=== PATIENT | male | born 1950 | race Caucasian/White ===

== ENCOUNTER 2018-10-29 14:27 | Observation (INO) | payer MEDICARE, OTHER ==
[2018-10-29] MEDS ORDERED: Sodium Chloride 0.9% 2.5 ML Syringe FLUSH PRN (14:40)
[2018-10-29] MEDS ORDERED: Sodium Chloride 0.9% 10 ML Syringe FLUSH PRN (14:40)
--- NOTE | 2018-10-29 14:42 | EDM.PDOC ---
ED HPI GENERAL MEDICAL PROBLEM - General Chief Complaint: Cardiovascular Problem Stated Complaint: HIGH BLOOD PRESSURE Time Seen by Provider: 10/29/18 14:33 Source of Information: Reports: Patient History Limitations: Reports: No Limitations - History of Present Illness INITIAL COMMENTS - FREE TEXT/NARRATIVE: History of present illness: []Patient arrives complaining of lightheadedness, headache and substernal nonradiating constant chest pain for 2 days. He has been taking hydrochlorothiazide for one week was started when he went into the clinic for cold symptoms and found to have high blood pressure. Review of systems: As per history of present illness and below otherwise all systems reviewed and negative. Past medical history: As per history of present illness and as reviewed below otherwise noncontributory. Surgical history: As per history of present illness and as reviewed below otherwise noncontributory. Social history: No reported history of drug or alcohol abuse. Family history: As per history of present illness and as reviewed below otherwise noncontributory. Physical exam: General: Well developed, well nourished in NAD HEENT: Atraumatic, normocephalic, pupils reactive, negative for conjunctival pallor or scleral icterus, mucous membranes moist, throat clear, neck supple, nontender, trachea midline. Lungs: Clear to auscultation, breath sounds equal bilaterally, chest nontender. Heart: S1S2, regular, negative for clicks, rubs, or JVD. Abdomen: NABS, Soft, nondistended, nontender. Negative for masses or hepatosplenomegaly. Negative for costovertebral tenderness. Pelvis: Stable nontender. Genitourinary: Deferred. Rectal: Deferred. Extremities: Atraumatic, negative for cords or calf pain. Neurovascular unremarkable. Neuro: Awake, alert, oriented. Cranial nerves II through XII unremarkable. Cerebellum unremarkable. Motor and sensory unremarkable throughout. Exam nonfocal. Skin:warm and dry Diagnostics: CBC, chemistry, troponin, chest x-ray EKG Therapeutics: IV fluids ED Course: Stable Impression: Hyponatremia Prescriptions: Plan: Admit to Dr. Tuttle hospitalist service for sodium correction Definitive disposition and diagnosis as appropriate pending reevaluation and review of above. Headache Pain Score (Numeric/FACES): 6 - Related Data Allergies Allergy/AdvReac Type Severity Reaction Status Date / Time No Known Allergies Allergy Verified 10/29/18 14:40 Home Meds: Home Meds hydroCHLOROthiazide [Hydrochlorothiazide] 12.5 mg PO DAILY 10/29/18 [History] ED ROS GENERAL - Review of Systems Review Of Systems: ROS reveals no pertinent complaints other than HPI. ED EXAM, GENERAL - Physical Exam Exam: See Below (See history of present illness) Course - Vital Signs Last Recorded V/S: Last Vital Signs Temp 97.1 F 10/29/18 14:40 Pulse 95 10/29/18 15:03 Resp 18 10/29/18 15:03 BP 185/97 H 10/29/18 15:03 Pulse Ox 98 10/29/18 15:03 - Orders/Labs/Meds Orders: Active Orders 24 hr Category Date Time Status Patient Status [ADT] Stat ADT 10/29/18 15:35 Ordered EKG Documentation Completion [RC] STAT Care 10/29/18 14:40 Active Chest 1V Frontal [CR] Stat Exams 10/29/18 14:41 Ordered Head wo Cont [CT] Stat Exams 10/29/18 14:59 Taken Sodium Chloride 0.9% [Normal Saline] 1,000 ml Med 10/29/18 15:36 Ordered IV .Bolus Sodium Chloride 0.9% [Saline Flush] Med 10/29/18 14:40 Active 10 ml FLUSH ASDIRECTED PRN Sodium Chloride 0.9% [Saline Flush] Med 10/29/18 14:40 Active 2.5 ml FLUSH ASDIRECTED PRN Saline Lock Insert [OM.PC] Stat Oth 10/29/18 14:40 Ordered Medication Orders Sodium Chloride (Normal Saline) 1,000 mls @ 250 mls/hr IV .Bolus ONE Stop: 10/29/18 19:35 Sodium Chloride (Saline Flush) 10 ml FLUSH ASDIRECTED PRN PRN Reason: Keep Vein Open Last Admin: 10/29/18 15:00 Dose: 10 ml Sodium Chloride (Saline Flush) 2.5 ml FLUSH ASDIRECTED PRN PRN Reason: Keep Vein Open Last Admin: 10/29/18 15:01 Dose: 2.5 ml Labs: Laboratory Tests 10/29/18 10/29/18 Range/Units 14:55 14:55 WBC 9.82 (4.0-11.0) K/uL RBC 4.86 (4.50-5.90) M/uL Hgb 15.2 (13.0-17.0) g/dL Hct 43.4 (38.0-50.0) % MCV 89.3 (80.0-98.0) fL MCH 31.3 (27.0-32.0) pg MCHC 35.0 (31.0-37.0) g/dL RDW Std Deviation 39.4 (28.0-62.0) fl RDW Coeff of Gregory 12 (11.0-15.0) % Plt Count 266 (150-400) K/uL MPV 8.80 (7.40-12.00) fL Neut % (Auto) 72.2 (48.0-80.0) % Lymph % (Auto) 20.1 (16.0-40.0) % [place] % (Auto) 7.3 (0.0-15.0) % Eos % (Auto) 0.0 (0.0-7.0) % Baso % (Auto) 0.4 (0.0-1.5) % Neut # (Auto) 7.1 H (1.4-5.7) K/uL Lymph # (Auto) 2.0 (0.6-2.4) K/uL [place] # (Auto) 0.7 (0.0-0.8) K/uL Eos # (Auto) 0.0 (0.0-0.7) K/uL Baso # (Auto) 0.0 (0.0-0.1) K/uL Nucleated RBC % 0.0 /100WBC Nucleated RBCs # 0 K/uL Sodium 124 L (136-148) mmol/L Potassium 4.0 (3.5-5.1) mmol/L Chloride 87 L (98-107) mmol/L Carbon Dioxide 26.6 (21.0-32.0) mmol/L BUN 6 L (7.0-18.0) mg/dL Creatinine 0.9 (0.8-1.3) mg/dL Est Cr Clr Drug Dosing 73.44 mL/min Estimated GFR (MDRD) > 60.0 ml/min Glucose 97 (74-106) mg/dL Calcium 8.9 (8.5-10.1) mg/dL Total Bilirubin 0.8 (0.2-1.0) mg/dL AST 24 (15-37) IU/L ALT 17 (14-63) IU/L Alkaline Phosphatase 125 H (46-116) U/L Troponin I < 0.050 (0.000-0.056) ng/mL Total Protein 8.0 (6.4-8.2) g/dL Albumin 3.8 (3.4-5.0) g/dL Globulin 4.2 H (2.6-4.0) g/dL Albumin/Globulin Ratio 0.9 (0.9-1.6) TSH 3rd Generation 3.24 (0.36-3.74) uIU/mL Meds: Medications Generic Name Dose Route Start Last Admin Trade Name Freq PRN Reason Stop Dose Admin Sodium Chloride 1,000 mls @ 250 mls/hr 10/29/18 15:36 Normal Saline IV 10/29/18 19:35 .Bolus ONE Sodium Chloride 10 ml 10/29/18 14:40 10/29/18 15:00 Saline Flush FLUSH 10 ml ASDIRECTED PRN Administration Keep Vein Open Sodium Chloride 2.5 ml 10/29/18 14:40 10/29/18 15:01 Saline Flush FLUSH 2.5 ml ASDIRECTED PRN Administration Keep Vein Open Departure - Departure Time of Disposition: 15:38 Disposition: Refer to Observation Condition: Good Clinical Impression: Hyponatremia Chest pain Qualifiers: Chest pain type: unspecified Qualified Code(s): R07.9 - Chest pain, unspecified Referrals: PCP,None [Primary Care Provider] - Forms: ED Department Discharge - My Orders Last 24 Hours: My Active Orders 10/29/18 14:40 EKG Documentation Completion [RC] STAT Sodium Chloride 0.9% [Saline Flush] 10 ml FLUSH ASDIRECTED PRN Sodium Chloride 0.9% [Saline Flush] 2.5 ml FLUSH ASDIRECTED PRN Saline Lock Insert [OM.PC] Stat 10/29/18 14:41 Chest 1V Frontal [CR] Stat 10/29/18 14:59 Head wo Cont [CT] Stat 10/29/18 15:35 Patient Status [ADT] Stat 10/29/18 15:36 Sodium Chloride 0.9% [Normal Saline] 1,000 ml IV .Bolus - Assessment/Plan Last 24 Hours: My Active Orders 10/29/18 14:40 EKG Documentation Completion [RC] STAT Sodium Chloride 0.9% [Saline Flush] 10 ml FLUSH ASDIRECTED PRN Sodium Chloride 0.9% [Saline Flush] 2.5 ml FLUSH ASDIRECTED PRN Saline Lock Insert [OM.PC] Stat 10/29/18 14:41 Chest 1V Frontal [CR] Stat 10/29/18 14:59 Head wo Cont [CT] Stat 10/29/18 15:35 Patient Status [ADT] Stat 10/29/18 15:36 Sodium Chloride 0.9% [Normal Saline] 1,000 ml IV .Bolus
[2018-10-29 15:26] LABS: CHLORIDE,CL 87 mmol/L (98-107); SODIUM,NA 124 mmol/L (136-148)
[2018-10-29] MEDS ORDERED: Sodium Chloride 0.9% 1,000 ML IV ONE (15:36)
--- NOTE | 2018-10-29 16:15 | CR ---
INDICATION: Pain shortness of breath TECHNIQUE: Single view chest. FINDINGS: The lungs are clear. The heart, mediastinum and pulmonary vessels are of normal size. There is no evidence of pleural disease. IMPRESSION: Negative chest. Dictated by Tatyana Madden MD @ Oct 29 2018 4:13PM Signed by Dr. Tatyana Madden @ Oct 29 2018 4:14PM
[2018-10-29] MEDS ORDERED: LORazepam 2 MG/ML SDV IVPUSH PRN (16:26)
--- NOTE | 2018-10-29 16:27 | CT ---
INDICATION: PAIN. PT STATES HEADACHE, HIGH BLOOD PRESSURE, LIGHTHEADED. PT STATES STARTED ON HIGH BLOOD PRESSURE PILLS ON WEDNESDAY TECHNIQUE: CT Head without i.v. contrast. COMPARISON: None FINDINGS: CSF spaces: Within normal limits for age. Brain parenchyma: Mild diffuse cortical atrophy is noted. There are low attenuation white matter changes, likely due to chronic microvascular disease. The brain parenchyma is normal in appearance with preservation of the duron-white matter junction. No sign of mass, hemorrhage, or midline shift seen. Skull base and calvarium: Moderate degree of right frontal, right maxillary, and anterior ethmoid mucosal thickening. The mastoid air cells are clear. The visualized orbits are grossly unremarkable. No skull fractures are seen. Moderate calcified plaque involving the bilateral intracranial internal carotid arteries. IMPRESSION: 1. No evidence of acute infarction, intracranial hemorrhage, or mass effect seen. 2. Moderate degree of chronic right frontal, right maxillary, and ethmoid sinus disease. Dictated by Curly Lopez MD @ 10/29/2018 4:26:04 PM Please note that all CT scans at this facility use dose modulation, iterative reconstruction, and/or weight-based dosing when appropriate to reduce radiation dose to as low as reasonably achievable. Dictated by: Curly Lopez MD @ 10/29/2018 16:26:07 (Electronically Signed)
[2018-10-29] MEDS ORDERED: Sodium Chloride 0.9% 1,000 ML IV SCH (16:30)
[2018-10-29] MEDS ORDERED: Acetaminophen 325 MG Tab PO PRN (16:56)
[2018-10-29] MEDS ORDERED: cloNIDine 0.1 MG Tab PO ONE (17:12)
--- NOTE | 2018-10-29 18:13 | PCM.HP ---
H&P History of Present Illness - General Date of Service: 10/29/18 Admit Problem/Dx: Admission Diagnosis/Problem Admission Diagnosis/Problem Hyponatremia - History of Present Illness Initial Comments - Free Text/Narative: 68 yo male who presents to the ED with complaints of elevated blood pressure. Patient was seen in clinic this week for sore throat cough and headache. He was given HCTZ for treatment of blood pressure. He reports headache has persisted but cough has improved. His blood pressure this week has been in the 180s to 190s systolic but he states it is normal 140s-150s systolic. He reports taking cold medicine but does not know if it contained pseudophed. Headache Pain Score (Numeric/FACES): 3 - Related Data Allergies/Adverse Reactions: Allergies Allergy/AdvReac Type Severity Reaction Status Date / Time No Known Allergies Allergy Verified 10/29/18 14:40 Home Medications: Home Meds Lisinopril 20 mg PO DAILY #30 tablet 10/30/18 [Rx] Past Medical History - Past Health History Medical/Surgical History: Denies Medical/Surgical History Respiratory History: Reports: Other (See Below) Other Respiratory History: Pt reports having pneumonia two years ago - Infectious Disease History Infectious Disease History: Reports: Chicken Pox Social & Family History - Family History Family Medical History: Noncontributory Cardiac: Reports: Other (See Below) Other Cardiac Family History: Pt reports dad and uncles having "heart troubles" - Tobacco Use Smoking Status *Q: Current Every Day Smoker Years of Tobacco use: 50 Packs/Tins Daily: 1.5 Used Tobacco, but Quit: No Second Hand Smoke Exposure: No - Caffeine Use Caffeine Use: Reports: Coffee Caffeine Use Comment: About 8 cups a day - Alcohol Use Days Per Week of Alcohol Use: 7 Number of Drinks Per Day: 5 Total Drinks Per Week: 35 Date of Last Drink: 10/28/18 Time of Last Drink: 20:00 - Recreational Drug Use Recreational Drug Use: No H&P Review of Systems - Review of Systems: Review Of Systems: ROS reveals no pertinent complaints other than HPI. Exam - Exam Exam: See Below - Vital Signs Vital Signs: Last Vital Signs Temp 36.6 C 10/29/18 16:04 Pulse 98 10/29/18 16:04 Resp 16 10/29/18 16:04 BP 162/110 H 10/29/18 17:31 Pulse Ox 98 10/29/18 16:04 Weight: 70.08 kg - Exam General: Alert, Oriented HEENT: Mucosa Moist & [place] Lungs: Clear to Auscultation, Normal Respiratory Effort Cardiovascular: Regular Rate, Regular Rhythm GI/Abdominal Exam: Normal Bowel Sounds, Soft, Non-Tender Extremities: Normal Inspection, Non-Tender, No Pedal Edema Skin: Warm, Dry, Intact Neurological: Cranial Nerves Intact. No: Focal Deficit - Patient Data Lab Results Last 24 hrs: Laboratory Results - last 24 hr 10/29/18 10/29/18 Range/Units 14:55 14:55 WBC 9.82 (4.0-11.0) K/uL RBC 4.86 (4.50-5.90) M/uL Hgb 15.2 (13.0-17.0) g/dL Hct 43.4 (38.0-50.0) % MCV 89.3 (80.0-98.0) fL MCH 31.3 (27.0-32.0) pg MCHC 35.0 (31.0-37.0) g/dL RDW Std Deviation 39.4 (28.0-62.0) fl RDW Coeff of Gregory 12 (11.0-15.0) % Plt Count 266 (150-400) K/uL MPV 8.80 (7.40-12.00) fL Neut % (Auto) 72.2 (48.0-80.0) % Lymph % (Auto) 20.1 (16.0-40.0) % [place] % (Auto) 7.3 (0.0-15.0) % Eos % (Auto) 0.0 (0.0-7.0) % Baso % (Auto) 0.4 (0.0-1.5) % Neut # (Auto) 7.1 H (1.4-5.7) K/uL Lymph # (Auto) 2.0 (0.6-2.4) K/uL [place] # (Auto) 0.7 (0.0-0.8) K/uL Eos # (Auto) 0.0 (0.0-0.7) K/uL Baso # (Auto) 0.0 (0.0-0.1) K/uL Nucleated RBC % 0.0 /100WBC Nucleated RBCs # 0 K/uL Sodium 124 L (136-148) mmol/L Potassium 4.0 (3.5-5.1) mmol/L Chloride 87 L (98-107) mmol/L Carbon Dioxide 26.6 (21.0-32.0) mmol/L BUN 6 L (7.0-18.0) mg/dL Creatinine 0.9 (0.8-1.3) mg/dL Est Cr Clr Drug Dosing 73.44 mL/min Estimated GFR (MDRD) > 60.0 ml/min Glucose 97 (74-106) mg/dL Calcium 8.9 (8.5-10.1) mg/dL Total Bilirubin 0.8 (0.2-1.0) mg/dL AST 24 (15-37) IU/L ALT 17 (14-63) IU/L Alkaline Phosphatase 125 H (46-116) U/L Troponin I < 0.050 (0.000-0.056) ng/mL Total Protein 8.0 (6.4-8.2) g/dL Albumin 3.8 (3.4-5.0) g/dL Globulin 4.2 H (2.6-4.0) g/dL Albumin/Globulin Ratio 0.9 (0.9-1.6) TSH 3rd Generation 3.24 (0.36-3.74) uIU/mL Result Diagrams: 10/30/18 03:11 10/30/18 03:11 Problem List Initiated/Reviewed/Updated: Yes Orders Last 24hrs: Active Orders 24 hr Category Date Time Status Patient Status [ADT] Stat ADT 10/29/18 15:35 Active Antiembolic Devices [RC] PER UNIT ROUTINE Care 10/29/18 18:01 Ordered CIWAA Assessment [RC] Q4H Care 10/29/18 16:25 Active EKG Documentation Completion [RC] STAT Care 10/29/18 14:40 Active Oxygen Therapy [RC] PRN Care 10/29/18 18:01 Ordered Telemetry Monitoring [Cardiac Monitoring] [RC] Q4H Care 10/29/18 16:23 Active Up ad Hazel [RC] ASDIRECTED Care 10/29/18 18:01 Ordered VTE/DVT Education [RC] PER UNIT ROUTINE Care 10/29/18 18:01 Ordered Vital Signs [RC] Q4H Care 10/29/18 18:01 Ordered Regular Diet [DIET] Diet 10/29/18 Dinner Active BMP [BASIC METABOLIC PANEL,BMP] [CHEM] Routine Lab 10/30/18 05:11 Ordered CBC WITH AUTO DIFF [HEME] Routine Lab 10/30/18 05:11 Ordered Acetaminophen [Tylenol] Med 10/29/18 16:56 Active 650 mg PO Q6H PRN LORazepam [Ativan] Med 10/29/18 16:26 Active See Protocol IVPUSH Q4H PRN Sodium Chloride 0.9% [Normal Saline] 1,000 ml Med 10/29/18 15:36 Active IV .Bolus Sodium Chloride 0.9% [Normal Saline] 1,000 ml Med 10/29/18 16:30 Active IV ASDIRECTED Sodium Chloride 0.9% [Saline Flush] Med 10/29/18 14:40 Active 10 ml FLUSH ASDIRECTED PRN Sodium Chloride 0.9% [Saline Flush] Med 10/29/18 14:40 Active 2.5 ml FLUSH ASDIRECTED PRN Saline Lock Insert [OM.PC] Stat Oth 10/29/18 14:40 Ordered Sequential Compression Device [OM.PC] Per Unit Routine Oth 10/29/18 18:01 Ordered Resuscitation Status Routine Resus Stat 10/29/18 18:01 Ordered Medication Orders Acetaminophen (Tylenol) 650 mg PO Q6H PRN PRN Reason: Pain Sodium Chloride (Normal Saline) 1,000 mls @ 250 mls/hr IV .Bolus ONE Stop: 10/29/18 19:35 Last Admin: 10/29/18 15:44 Dose: 250 mls/hr Sodium Chloride (Normal Saline) 1,000 mls @ 125 mls/hr IV ASDIRECTED DONNY Lorazepam (Ativan) 0 mg IVPUSH Q4H PRN; Protocol PRN Reason: Withdrawal Symptoms Sodium Chloride (Saline Flush) 10 ml FLUSH ASDIRECTED PRN PRN Reason: Keep Vein Open Last Admin: 10/29/18 15:00 Dose: 10 ml Sodium Chloride (Saline Flush) 2.5 ml FLUSH ASDIRECTED PRN PRN Reason: Keep Vein Open Last Admin: 10/29/18 15:01 Dose: 2.5 ml Assessment/Plan Comment:: 68 yo male admitted with hyponatremia and hypertension. Hyponatremia likley for HCTZ so this was discontinued. We will start oral antihypertensives and hydrate with IV fluids. Will recheck BMP to ensure sodium is correcting. Family will bring in cold medicine for review.
[2018-10-30 03:32] LABS: CHLORIDE,CL 94 mmol/L (98-107); SODIUM,NA 131 mmol/L (136-148)
--- NOTE | 2018-10-30 09:23 | PCM.DCSUM1 ---
Discharge Summary - Discharge Data Discharge Date: 10/30/18 Discharge Disposition: Home, Self-Care 01 Condition: Fair - Patient Summary/Data Hospital Course: 68 yo male who was admitted for hyponatremia and hypertension. He presented to the ED with complaints of elevated blood pressure and headache. Patient was seen in clinic four days earlier for sore throat cough and headache. He was given HCTZ for treatment of blood pressure. He reports headache has persisted but cough has improved. His blood pressure this week has been in the 180s to 190s systolic but he states it is normal 140s-150s systolic. He took cold medicine but it did not contain pseudophed. He was noted to have a sodium of 124. He was admitted and given one liter of normal saline and one dose of clonidine. His headache resolved and his sodium improved to 131. His blood pressure did drop to 106/75 after clonidine but today it has normalized to the 140s systolic. Today he is requesting discharge. He was discharged home to have follow up with [facility]. He was given a prescription of lisinopril 20mg daily and instructed to take his blood pressure daily. - Patient Instructions Diet: Usual Diet as Tolerated Activity: As Tolerated - Discharge Plan Prescriptions/Med Rec: Lisinopril 20 mg PO DAILY #30 tablet Home Medications: Home Meds Lisinopril 20 mg PO DAILY #30 tablet 10/30/18 [Rx] Forms: ED Department Discharge Referrals: PCP,None [Primary Care Provider] - - Discharge Summary/Plan Comment DC Time >30 min.: No - Patient Data Vitals - Most Recent: Last Vital Signs Temp 36.4 C 10/30/18 07:37 Pulse 69 10/30/18 07:37 Resp 16 10/30/18 07:37 BP 140/82 10/30/18 07:37 Pulse Ox 97 10/30/18 07:37 Weight - Most Recent: 70.08 kg I&O - Last 24 hours: Intake & Output 10/29/18 10/30/18 10/30/18 22:59 06:59 14:59 Intake Total 1000 860 240 Output Total 1750 Balance 1000 -890 240 Lab Results - Last 24 hrs: Laboratory Results - last 24 hr 10/29/18 10/29/18 10/29/18 Range/Units 14:55 14:55 20:45 WBC 9.82 (4.0-11.0) K/uL RBC 4.86 (4.50-5.90) M/uL Hgb 15.2 (13.0-17.0) g/dL Hct 43.4 (38.0-50.0) % MCV 89.3 (80.0-98.0) fL MCH 31.3 (27.0-32.0) pg MCHC 35.0 (31.0-37.0) g/dL RDW Std Deviation 39.4 (28.0-62.0) fl RDW Coeff of [place] 12 (11.0-15.0) % Plt Count 266 (150-400) K/uL MPV 8.80 (7.40-12.00) fL Neut % (Auto) 72.2 (48.0-80.0) % Lymph % (Auto) 20.1 (16.0-40.0) % [place] % (Auto) 7.3 (0.0-15.0) % Eos % (Auto) 0.0 (0.0-7.0) % Baso % (Auto) 0.4 (0.0-1.5) % Neut # (Auto) 7.1 H (1.4-5.7) K/uL Lymph # (Auto) 2.0 (0.6-2.4) K/uL [place] # (Auto) 0.7 (0.0-0.8) K/uL Eos # (Auto) 0.0 (0.0-0.7) K/uL Baso # (Auto) 0.0 (0.0-0.1) K/uL Nucleated RBC % 0.0 /100WBC Nucleated RBCs # 0 K/uL Sodium 124 L (136-148) mmol/L Potassium 4.0 (3.5-5.1) mmol/L Chloride 87 L (98-107) mmol/L Carbon Dioxide 26.6 (21.0-32.0) mmol/L BUN 6 L (7.0-18.0) mg/dL Creatinine 0.9 (0.8-1.3) mg/dL Est Cr Clr Drug Dosing 73.44 mL/min Estimated GFR (MDRD) > 60.0 ml/min Glucose 97 (74-106) mg/dL Calcium 8.9 (8.5-10.1) mg/dL Total Bilirubin 0.8 (0.2-1.0) mg/dL AST 24 (15-37) IU/L ALT 17 (14-63) IU/L Alkaline Phosphatase 125 H (46-116) U/L Troponin I < 0.050 < 0.050 (0.000-0.056) ng/mL Total Protein 8.0 (6.4-8.2) g/dL Albumin 3.8 (3.4-5.0) g/dL Globulin 4.2 H (2.6-4.0) g/dL Albumin/Globulin Ratio 0.9 (0.9-1.6) TSH 3rd Generation 3.24 (0.36-3.74) uIU/mL 10/30/18 10/30/18 10/30/18 Range/Units 03:11 03:11 03:11 WBC 6.10 (4.0-11.0) K/uL RBC 4.65 (4.50-5.90) M/uL Hgb 14.6 (13.0-17.0) g/dL Hct 42.0 (38.0-50.0) % MCV 90.3 (80.0-98.0) fL MCH 31.4 (27.0-32.0) pg MCHC 34.8 (31.0-37.0) g/dL RDW Std Deviation 40.7 (28.0-62.0) fl RDW Coeff of [place] 12 (11.0-15.0) % Plt Count 243 (150-400) K/uL MPV 8.90 (7.40-12.00) fL Neut % (Auto) 67.8 (48.0-80.0) % Lymph % (Auto) 18.5 (16.0-40.0) % [place] % (Auto) 13.0 (0.0-15.0) % Eos % (Auto) 0.0 (0.0-7.0) % Baso % (Auto) 0.7 (0.0-1.5) % Neut # (Auto) 4.1 (1.4-5.7) K/uL Lymph # (Auto) 1.1 (0.6-2.4) K/uL [place] # (Auto) 0.8 (0.0-0.8) K/uL Eos # (Auto) 0.0 (0.0-0.7) K/uL Baso # (Auto) 0.0 (0.0-0.1) K/uL Nucleated RBC % 0.0 /100WBC Nucleated RBCs # 0 K/uL Sodium 131 L (136-148) mmol/L Potassium 4.3 (3.5-5.1) mmol/L Chloride 94 L (98-107) mmol/L Carbon Dioxide 29.4 (21.0-32.0) mmol/L BUN 10 (7.0-18.0) mg/dL Creatinine 0.9 (0.8-1.3) mg/dL Est Cr Clr Drug Dosing 70.89 mL/min Estimated GFR (MDRD) > 60.0 ml/min Glucose 96 (74-106) mg/dL Calcium 8.6 (8.5-10.1) mg/dL Total Bilirubin (0.2-1.0) mg/dL AST (15-37) IU/L ALT (14-63) IU/L Alkaline Phosphatase (46-116) U/L Troponin I < 0.050 (0.000-0.056) ng/mL Total Protein (6.4-8.2) g/dL Albumin (3.4-5.0) g/dL Globulin (2.6-4.0) g/dL Albumin/Globulin Ratio (0.9-1.6) TSH 3rd Generation (0.36-3.74) uIU/mL Med Orders - Current: Current Medications Acetaminophen (Tylenol) 650 mg PO Q6H PRN PRN Reason: Pain Lorazepam (Ativan) 0 mg IVPUSH Q4H PRN; Protocol PRN Reason: Withdrawal Symptoms Sodium Chloride (Saline Flush) 10 ml FLUSH ASDIRECTED PRN PRN Reason: Keep Vein Open Last Admin: 10/29/18 15:00 Dose: 10 ml Sodium Chloride (Saline Flush) 2.5 ml FLUSH ASDIRECTED PRN PRN Reason: Keep Vein Open Last Admin: 10/29/18 15:01 Dose: 2.5 ml Discontinued Medications Clonidine HCl (Catapres) 0.1 mg PO ONETIME ONE Stop: 10/29/18 17:13 Last Admin: 05/11/19 17:31 Dose: 0.1 mg Sodium Chloride (Normal Saline) 1,000 mls @ 250 mls/hr IV .Bolus ONE Stop: 10/29/18 19:35 Last Admin: 10/29/18 15:44 Dose: 250 mls/hr Sodium Chloride (Normal Saline) 1,000 mls @ 125 mls/hr IV ASDIRECTED DONNY
== END 2018-10-30 10:45 | disposition home or self-care (01) ==
LOC: MW.ED 14:27 → MW.MS 15:45
PROVIDERS: ADMIT Internal Medicine; ATTEND Internal Medicine
DX: I10 Essential (primary) hypertension (principal); E87.1 Hypo-osmolality and hyponatremia; F17.210 Nicotine dependence, cigarettes, uncomplicated
CPT/HCPCS: 36415; 70450; 71045; 80048; 80053; 84443; 84484; 85025; 93005; 96360; 96361; 99285; A9270; G0378; J7040

== ENCOUNTER 2019-02-07 13:35 | Emergency (ER) | payer MEDICARE ==
--- NOTE | 2019-02-07 13:50 | EDM.PDOC ---
ED HPI GENERAL MEDICAL PROBLEM - General Chief Complaint: Upper Extremity Injury/Pain Stated Complaint: LEFT SHOULDER Time Seen by Provider: 02/07/19 13:40 Source of Information: Reports: Patient History Limitations: Reports: No Limitations - History of Present Illness INITIAL COMMENTS - FREE TEXT/NARRATIVE: HISTORY AND PHYSICAL: History of present illness: Patient is a 68 her old male who presents to the emergency room with complaints of pain to his left shoulder. 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 He denies falling or hitting his head. He does not take any blood thinners. Pain is localized to a golf ball sized area that has soft tissue swelling at the left medial anterior deltoid. Patient denies any fever, chills, headache, change in vision, syncope or near syncope. Denies any chest pain, back pain, shortness of breath or cough. Denies any GI or symptoms. Patient has been eating and drinking appropriately. Review of systems: As per history of present illness and below otherwise all systems reviewed and negative. Past medical history: As per history of present illness and as reviewed below otherwise noncontributory. Surgical history: As per history of present illness and as reviewed below otherwise noncontributory. Social history: See social history for further information Family history: As per history of present illness and as reviewed below otherwise noncontributory. Physical exam: General: Well-developed and well-nourished 68-year-old male. Alert and oriented. Nontoxic appearing and in no acute distress HEENT: Atraumatic, normocephalic, pupils equal and reactive bilaterally, negative for conjunctival pallor or scleral icterus, mucous membranes moist, trachea midline. No drooling or trismus noted. No meningeal signs. No hot potato voice noted. Lungs: Clear to auscultation, breath sounds equal bilaterally, chest nontender. Heart: S1S2, regular rate and rhythm without overt murmur Abdomen: Soft, nondistended, nontender. Negative for costovertebral tenderness. Pelvis: Stable nontender. Skin: Soft tissue swelling to left anterior deltoid. Tender to palpation. Otherwise skin is intact, warm, dry. No lesions or rashes noted. Extremities: See SKIN for details, no jeet tenderness of the clavical, scapula , elbow, forearm, wrist or hand. Pain to the soft tissue site with ROM of the left shoulder. Moves all extremities per self without deficits. Strong radial pulse. Cap refill less than 3 seconds. Neurovascular unremarkable. Neuro: Awake, alert, oriented. Cranial nerves II through XII unremarkable. Cerebellum unremarkable. Motor and sensory unremarkable throughout. Exam nonfocal. Notes: Declines any medication at this time. Discussed with patient the limitations of x-ray imaging. X-ray shows no acute findings. We'll place in sling and provide comfort measures. Encouraged him to follow up primary care or orthopedic provider for further evaluation and management as he may need further imaging. Supportive care measures were reviewed and discussed. Voices understanding and is agreeable to plan of care. Denies any further questions or concerns at this time. Diagnostics: X-ray Therapeutics: Sling Prescription: Tramadol Impression: Hematoma Left Shoulder Injury Plan: 1. Rest, ice, elevate the affected extremity. Please wear the sling as directed. 2. Tylenol and/or Ibuprofen as needed for pain management. 3. Follow up with the Orthopedic provider as we discussed. Return to the ED as needed and as discussed. Definitive disposition and diagnosis as appropriate pending reevaluation and review of above. left shoulder Pain Score (Numeric/FACES): 8 - Related Data Allergies Allergy/AdvReac Type Severity Reaction Status Date / Time No Known Allergies Allergy Verified 10/29/18 14:40 Home Meds: Home Meds . [No Known Home Meds] 02/07/19 [History] Past Medical History - Past Health History Medical/Surgical History: Denies Medical/Surgical History Respiratory History: Reports: Other (See Below) Other Respiratory History: Pt reports having pneumonia two years ago - Infectious Disease History Infectious Disease History: Reports: Chicken Pox Social & Family History - Family History Family Medical History: Noncontributory Cardiac: Reports: Other (See Below) Other Cardiac Family History: Pt reports dad and uncles having "heart troubles" - Caffeine Use Caffeine Use: Reports: Coffee Caffeine Use Comment: About 8 cups a day Review of Systems - Review of Systems Review Of Systems: ROS reveals no pertinent complaints other than HPI. ED EXAM, GENERAL - Physical Exam Exam: See Below (See dictation) Course - Vital Signs Last Recorded V/S: Last Vital Signs Temp 98.0 F 02/07/19 14:24 Pulse 85 02/07/19 14:24 Resp 18 02/07/19 14:24 BP 163/93 H 02/07/19 14:24 Pulse Ox 98 02/07/19 14:24 - Orders/Labs/Meds Orders: Active Orders 24 hr Category Date Time Status DME for Discharge [COMM] Stat Oth 02/07/19 13:50 Ordered Departure - Departure Time of Disposition: 15:13 Disposition: Home, Self-Care 01 Clinical Impression: Hematoma Injury of left shoulder Qualifiers: Encounter type: initial encounter Qualified Code(s): S49.92XA - Unspecified injury of left shoulder and upper arm, initial encounter - Discharge Information Instructions: RICE Therapy for Routine Care of Injuries, [id number], Shoulder Pain, [id number], Hematoma, [id number] Referrals: PCP,None [Primary Care Provider] - Forms: ED Department Discharge Additional Instructions: The following information is given to patients seen in the emergency department who are being discharged to home. This information is to outline your options for follow-up care. We provide all patients seen in our emergency department with a follow-up referral. The need for follow-up, as well as the timing and circumstances, are variable depending upon the specifics of your emergency department visit. If you don't have a primary care physician on staff, we will provide you with a referral. We always advise you to contact your personal physician following an emergency department visit to inform them of the circumstance of the visit and for follow-up with them and/or the need for any referrals to a consulting specialist. The emergency department will also refer you to a specialist when appropriate. This referral assures that you have the opportunity for follow-up care with a specialist. All of these measure are taken in an effort to provide you with optimal care, which includes your follow-up. Under all circumstances we always encourage you to contact your private physician who remains a resource for coordinating your care. When calling for follow-up care, please make the office aware that this follow-up is from your recent emergency room visit. If for any reason you are refused follow-up, please contact the [facility] Emergency Department at and asked to speak to the emergency department charge nurse. [facility] [address] [place] [id number] [facility] [address] [place] [id number] 1. Rest, ice, elevate the affected extremity. Please wear the sling as directed. 2. Tylenol and/or Ibuprofen as needed for pain management. 3. Follow up with the Orthopedic provider as we discussed. Return to the ED as needed and as discussed. - My Orders Last 24 Hours: My Active Orders 02/07/19 13:50 DME for Discharge [COMM] Stat - Assessment/Plan Last 24 Hours: My Active Orders 02/07/19 13:50 DME for Discharge [COMM] Stat
--- NOTE | 2019-02-07 15:05 | CR ---
INDICATION: Pain. TECHNIQUE: Three views left shoulder. FINDINGS: [id number] degenerative arthritis left shoulder. Tiny lucency in the left humeral head likely benign. Sclerosis focally in the left superior lateral humeral head likely degenerative. No acute fracture or dislocation in the left shoulder. Remainder negative. Dictated by Ata Morejon MD @ Feb 07 2019 3:01PM Signed by Dr. Ata Morejon @ Feb 07 2019 3:03PM
== END 2019-02-07 14:24 | disposition home or self-care (01) ==
LOC: MW.ED 13:35
DX: S40.012A Contusion of left shoulder, initial encounter (principal); W22.8XXA Striking against or struck by other objects, initial encounter
CPT/HCPCS: 73030-26-LT; 73030-LT; 99283; 99283-25

== ENCOUNTER 2020-08-21 08:13 | Emergency (ER) | payer MEDICARE, OTHER ==
--- NOTE | 2020-08-21 08:18 | EDM.PDOC ---
ED HPI GENERAL MEDICAL PROBLEM - General Stated Complaint: C DIFF Time Seen by Provider: 08/21/20 08:17 Source of Information: Reports: Patient History Limitations: Reports: No Limitations - History of Present Illness INITIAL COMMENTS - FREE TEXT/NARRATIVE: 70-year-old male presents with decreased urine output, dysuria, urinary urgency for 2 weeks. He was tested positive yesterday for C. difficile from samples collected last Wednesday, and was prescribed vancomycin 125 mg every 6 hours yesterday, and Cipro 500 mg twice daily for 7 days on 08/[address] Lujan. He notes watery, dark diarrhea over the last 3 weeks, "too many times to count" per day. He has been taking ibuprofen about 3 times a day over the past couple weeks for abdominal pain. His abdominal pain is diffuse in the lower abdomen, described as soreness sensation, moderate, nonradiating, constant, no alleviating or exacerbating factors, associated with fevers and chills. He denies nausea, vomiting, chest pain, cough, shortness of breath. He had his second fracture Covid vaccination on 08/08. He has never had a colonoscopy. ROS: A 10-point review of systems, other than pertinent positives and negatives as stated per HPI, is otherwise negative Past medical history: No additional pertinent history Past Surgical history: No additional pertinent history Social history: No additional pertinent history Family history: No additional pertinent history PHYSICAL EXAM General: AOx4, GCS = 15, mild distress, [place] HEENT: dry mucous membrane Neck: supple, no meningismus, no Kernig or Brudzinski Cardiac: S1S2 tachycardia Respiratory: CTAB, no crackles or rales, no wheezing Abdomen: Soft, diffuse tenderness, distended, no pulsatile mass. Hemocult positive. No tenderness to perineum. Back: nontender Musculoskeletal: NVI distally, no deformity Neuro: No focal deficits, CN 2 - 12 WNL. - Related Data Allergies Allergy/AdvReac Type Severity Reaction Status Date / Time No Known Allergies Allergy Verified 08/21/20 08:37 Home Meds: Home Meds Aspirin [Halfprin] 81 mg PO DAILY 08/21/20 [History] Past Medical History - Past Health History Medical/Surgical History: Denies Medical/Surgical History HEENT History: Reports: Hard of Hearing Cardiovascular History: Reports: Hypertension Respiratory History: Reports: Other (See Below) Other Respiratory History: Pt reports having pneumonia two years ago - Infectious Disease History Infectious Disease History: Reports: Chicken Pox Social & Family History - Family History Family Medical History: No Pertinent Family History Cardiac: Reports: Other (See Below) Other Cardiac Family History: Pt reports dad and uncles having "heart troubles" - Caffeine Use Caffeine Use: Reports: Coffee Caffeine Use Comment: About 8 cups a day ED ROS GENERAL - Review of Systems Review Of Systems: See Below (see dictation) ED EXAM, GENERAL - Physical Exam Exam: See Below (see dictation) Course - Vital Signs Last Recorded V/S: Last Vital Signs Temp 98 F 08/21/20 08:32 Pulse 108 H 08/21/20 11:25 Resp 16 08/21/20 08:32 BP 160/86 H 08/21/20 11:25 Pulse Ox 96 08/21/20 11:25 - Orders/Labs/Meds Orders: Active Orders 24 hr Category Date Time Status Cardiac Monitoring [RC] . DIRECTED Care 08/21/20 08:51 Active Pulse Oximetry [RC] ASDIRECTED Care 08/21/20 08:51 Active CULTURE BLOOD [BC] Stat Lab 08/21/20 09:10 Received CULTURE BLOOD [BC] Stat Lab 08/21/20 09:20 Received Lactated Ringers [Ringers, Lactated] 1,000 ml Med 08/21/20 10:57 Active IV .BOLUS Sodium Chloride 0.9% [Saline Flush] Med 08/21/20 08:51 Active 10 ml FLUSH ASDIRECTED PRN Sodium Chloride 0.9% [Saline Flush] Med 08/21/20 08:51 Active 2.5 ml FLUSH ASDIRECTED PRN Blood Culture x2 Reflex Set [OM.PC] Stat Oth 08/21/20 08:59 Ordered Isolation [COMM] Stat Oth 08/21/20 08:59 Active Saline Lock Insert [OM.PC] Stat Oth 08/21/20 08:51 Ordered Medication Orders Lactated Ringer's (Ringers, Lactated) 1,000 mls @ 999 mls/hr IV .BOLUS ONE Stop: 08/21/20 11:57 Last Admin: 08/21/20 11:19 Dose: 999 mls/hr Documented by: DREW Sodium Chloride (Saline Flush) 10 ml FLUSH ASDIRECTED PRN PRN Reason: Keep Vein Open Last Admin: 08/21/20 09:04 Dose: 10 ml Documented by: DREW Sodium Chloride (Saline Flush) 2.5 ml FLUSH ASDIRECTED PRN PRN Reason: Keep Vein Open Last Admin: 08/21/20 09:04 Dose: 2.5 ml Documented by: DREW Labs: Laboratory Tests 08/21/20 08/21/20 08/21/20 Range/Units 08:53 08:53 08:53 WBC 18.27 H (4.0-11.0) K/uL RBC 4.11 L (4.50-5.90) M/uL Hgb 11.6 L (13.0-17.0) g/dL Hct 35.3 L (38.0-50.0) % MCV 85.9 (80.0-98.0) fL MCH 28.2 (27.0-32.0) pg MCHC 32.9 (31.0-37.0) g/dL RDW Std Deviation 42.6 (28.0-62.0) fl RDW Coeff of Gregory 14 (11.0-15.0) % Plt Count 521 H (150-400) K/uL MPV 8.70 (7.40-12.00) fL Neut % (Auto) 86.8 H (48.0-80.0) % Lymph % (Auto) 6.3 L (16.0-40.0) % [place] % (Auto) 6.2 (0.0-15.0) % Eos % (Auto) 0.5 (0.0-7.0) % Baso % (Auto) 0.2 (0.0-1.5) % Neut # (Auto) 15.9 H (1.4-5.7) K/uL Lymph # (Auto) 1.2 (0.6-2.4) K/uL [place] # (Auto) 1.1 H (0.0-0.8) K/uL Eos # (Auto) 0.1 (0.0-0.7) K/uL Baso # (Auto) 0.0 (0.0-0.1) K/uL Nucleated RBC % 0.0 /100WBC Nucleated RBCs # 0 K/uL INR APTT (18.6-31.3) SEC Lactate 1.1 (0.20-2.00) mmol/L Sodium 132 L (136-148) mmol/L Potassium 4.1 (3.5-5.1) mmol/L Chloride 96 L (98-107) mmol/L Carbon Dioxide 25.0 (21.0-32.0) mmol/L BUN 10 (7.0-18.0) mg/dL Creatinine 1.0 (0.8-1.3) mg/dL Est Cr Clr Drug Dosing 62.03 mL/min Estimated GFR (MDRD) > 60.0 ml/min Glucose 115 H (74-106) mg/dL Calcium 8.8 (8.5-10.1) mg/dL Phosphorus 3.1 (2.6-4.7) mg/dL Magnesium 2.1 (1.8-2.4) mg/dL Total Bilirubin 0.5 (0.2-1.0) mg/dL AST 15 (15-37) IU/L ALT 11 L (14-63) IU/L Alkaline Phosphatase 110 (46-116) U/L Total Protein 7.6 (6.4-8.2) g/dL Albumin 2.9 L (3.4-5.0) g/dL Globulin 4.7 H (2.6-4.0) g/dL Albumin/Globulin Ratio 0.6 L (0.9-1.6) Lipase 46 L (73-393) U/L Urine Color Urine Appearance Urine pH (5.0-8.0) Ur Specific [place] (1.001-1.035) Urine Protein (NEGATIVE) mg/dL Urine Glucose (UA) (NEGATIVE) mg/dL Urine Ketones (NEGATIVE) mg/dL Urine Occult Blood (NEGATIVE) Urine Nitrite (NEGATIVE) Urine Bilirubin (NEGATIVE) Urine Urobilinogen (<2.0) EU/dL Ur Leukocyte Esterase (NEGATIVE) Urine RBC (0-2/HPF) Urine WBC (0-5/HPF) Ur Epithelial Cells (NONE-FEW) Urine Bacteria (NEGATIVE) SARS-CoV-2 RNA (GUCCI) (NEGATIVE) 08/21/20 08/21/20 08/21/20 Range/Units 08:53 09:10 09:29 WBC (4.0-11.0) K/uL RBC (4.50-5.90) M/uL Hgb (13.0-17.0) g/dL Hct (38.0-50.0) % MCV (80.0-98.0) fL MCH (27.0-32.0) pg MCHC (31.0-37.0) g/dL RDW Std Deviation (28.0-62.0) fl RDW Coeff of Gregory (11.0-15.0) % Plt Count (150-400) K/uL MPV (7.40-12.00) fL Neut % (Auto) (48.0-80.0) % Lymph % (Auto) (16.0-40.0) % [place] % (Auto) (0.0-15.0) % Eos % (Auto) (0.0-7.0) % Baso % (Auto) (0.0-1.5) % Neut # (Auto) (1.4-5.7) K/uL Lymph # (Auto) (0.6-2.4) K/uL [place] # (Auto) (0.0-0.8) K/uL Eos # (Auto) (0.0-0.7) K/uL Baso # (Auto) (0.0-0.1) K/uL Nucleated RBC % /100WBC Nucleated RBCs # K/uL INR 1.02 APTT 30.3 (18.6-31.3) SEC Lactate (0.20-2.00) mmol/L Sodium (136-148) mmol/L Potassium (3.5-5.1) mmol/L Chloride (98-107) mmol/L Carbon Dioxide (21.0-32.0) mmol/L BUN (7.0-18.0) mg/dL Creatinine (0.8-1.3) mg/dL Est Cr Clr Drug Dosing mL/min Estimated GFR (MDRD) ml/min Glucose (74-106) mg/dL Calcium (8.5-10.1) mg/dL Phosphorus (2.6-4.7) mg/dL Magnesium (1.8-2.4) mg/dL Total Bilirubin (0.2-1.0) mg/dL AST (15-37) IU/L ALT (14-63) IU/L Alkaline Phosphatase (46-116) U/L Total Protein (6.4-8.2) g/dL Albumin (3.4-5.0) g/dL Globulin (2.6-4.0) g/dL Albumin/Globulin Ratio (0.9-1.6) Lipase (73-393) U/L Urine Color YELLOW Urine Appearance CLEAR Urine pH 6.0 (5.0-8.0) Ur Specific [place] 1.020 (1.001-1.035) Urine Protein NEGATIVE (NEGATIVE) mg/dL Urine Glucose (UA) NEGATIVE (NEGATIVE) mg/dL Urine Ketones TRACE H (NEGATIVE) mg/dL Urine Occult Blood NEGATIVE (NEGATIVE) Urine Nitrite NEGATIVE (NEGATIVE) Urine Bilirubin NEGATIVE (NEGATIVE) Urine Urobilinogen 0.2 (<2.0) EU/dL Ur Leukocyte Esterase NEGATIVE (NEGATIVE) Urine RBC 0-2 (0-2/HPF) Urine WBC 0-3 (0-5/HPF) Ur Epithelial Cells RARE (NONE-FEW) Urine Bacteria RARE (NEGATIVE) SARS-CoV-2 RNA (GUCCI) NEGATIVE (NEGATIVE) Meds: Medications Generic Name Dose Route Start Last Admin Trade Name Freq PRN Reason Stop Dose Admin Lactated Ringer's 1,000 mls @ 999 mls/hr 08/21/20 10:57 08/21/20 11:19 Ringers, Lactated IV 08/21/20 11:57 999 mls/hr .BOLUS ONE Administration Sodium Chloride 10 ml 08/21/20 08:51 08/21/20 09:04 Saline Flush FLUSH 10 ml ASDIRECTED PRN Administration Keep Vein Open Sodium Chloride 2.5 ml 08/21/20 08:51 08/21/20 09:04 Saline Flush FLUSH 2.5 ml ASDIRECTED PRN Administration Keep Vein Open Discontinued Medications Generic Name Dose Route Start Last Admin Trade Name Freq PRN Reason Stop Dose Admin Lactated Ringer's 1,000 mls @ 999 mls/hr 08/21/20 08:51 08/21/20 09:03 Ringers, Lactated IV 08/21/20 09:51 999 mls/hr .BOLUS ONE Administration Metronidazole 500 mg/ Premix 100 mls @ 100 mls/hr 08/21/20 09:04 08/21/20 09:13 IV 08/21/20 10:03 100 mls/hr ONETIME ONE Administration Iopamidol 100 ml 08/21/20 10:12 08/21/20 10:15 Isovue Multipack-370 (76%) IVPUSH 08/21/20 10:13 100 ml ONETIME STA Administration Morphine Sulfate 4 mg 08/21/20 08:58 08/21/20 09:04 Morphine IVPUSH 08/21/20 08:59 4 mg ONETIME ONE Administration Ondansetron HCl 4 mg 08/21/20 08:58 08/21/20 09:04 Zofran IVPUSH 08/21/20 08:59 4 mg ONETIME ONE Administration - Re-Assessments/Exams Free Text/Narrative Re-Assessment/Exam: 08/21/20 11:[address] Contreras control system computer scientist for general surgery, she reviewed the CT, she recommends transferring to outside facility for colorectal surgery consultation unavailable at this facility. 08/21/20 11:35 I reassessed the patient, patient had 1300 cc urine output after Jansen insertion. He feels much better. 08/21/20 11:[address] Rebollar, colorectal surgery at [facility], will consult on patient upon arrival. Case discussed with hospitalist Dr. Brown at [facility], he will accept transfer to the floor. CRITiCAL CARE: The high probability of sudden, clinically significant deterioration in the patient's condition required the highest level of my preparedness to intervene urgently. The services I provided to this patient were to treat and/or prevent clinically significant deterioration. Services included the following: chart data review, reviewing nursing notes and/or old charts, documentation time, senior market intelligence consultant collaboration regarding findings and treatment options, medication orders and management, direct patient care, vital sign assessments and ordering, interpreting and reviewing diagnostic studies/lab tests. Aggregate critical care time includes only time during which I was engaged in work directly related to the patient's care, as described above, whether at the bedside or elsewhere in the Emergency Department. It did not include time spent performing other reported procedures or the services of residents, students, nurses or physician assistants. Frequent interventions and/or frequent repeat evaluations were required as well as counseling and coordination of care regarding prognosis, treatments, and discussions with patient, staff and consultants. Critical Care (excluding other procedures): 40 minutes Departure - Departure Time of Disposition: 11:51 Disposition: DC/Tfer to [facility] 02 Condition: Fair Clinical Impression: Urinary retention, Bladder outlet obstruction, Perianal abscess, Perirectal abscess, Sepsis - Discharge Information *PRESCRIPTION DRUG MONITORING PROGRAM REVIEWED*: Not Applicable *COPY OF PRESCRIPTION DRUG MONITORING REPORT IN PATIENT KOLBY: Not Applicable Referrals: Leia Lujan DO [Primary Care Provider] - Sepsis Event Note (ED) - Focused Exam Vital Signs: Vital Signs Temp Pulse Resp BP Pulse Ox 08/21/20 11:25 108 H 160/86 H 96 08/21/20 10:32 101 H 136/67 94 L 08/21/20 09:32 98 153/85 H 95 08/21/20 08:32 98 F 119 H 16 155/85 H 98 - My Orders Last 24 Hours: My Active Orders 08/21/20 08:51 Cardiac Monitoring [RC] . DIRECTED Pulse Oximetry [RC] ASDIRECTED Sodium Chloride 0.9% [Saline Flush] 10 ml FLUSH ASDIRECTED PRN Sodium Chloride 0.9% [Saline Flush] 2.5 ml FLUSH ASDIRECTED PRN Saline Lock Insert [OM.PC] Stat 08/21/20 08:59 Blood Culture x2 Reflex Set [OM.PC] Stat Isolation [COMM] Stat 08/21/20 09:10 CULTURE BLOOD [BC] Stat 08/21/20 09:20 CULTURE BLOOD [BC] Stat 08/21/20 10:57 Lactated Ringers [Ringers, Lactated] 1,000 ml IV .BOLUS - Assessment/Plan Last 24 Hours: My Active Orders 08/21/20 08:51 Cardiac Monitoring [RC] . DIRECTED Pulse Oximetry [RC] ASDIRECTED Sodium Chloride 0.9% [Saline Flush] 10 ml FLUSH ASDIRECTED PRN Sodium Chloride 0.9% [Saline Flush] 2.5 ml FLUSH ASDIRECTED PRN Saline Lock Insert [OM.PC] Stat 08/21/20 08:59 Blood Culture x2 Reflex Set [OM.PC] Stat Isolation [COMM] Stat 08/21/20 09:10 CULTURE BLOOD [BC] Stat 08/21/20 09:20 CULTURE BLOOD [BC] Stat 08/21/20 10:57 Lactated Ringers [Ringers, Lactated] 1,000 ml IV .BOLUS
[2020-08-21] MEDS ORDERED: Lactated Ringers 1,000 ML IV ONE ×2 (08:51→10:57)
[2020-08-21] MEDS ORDERED: Sodium Chloride 0.9% 10 ML Syringe FLUSH PRN (08:51)
[2020-08-21] MEDS ORDERED: Sodium Chloride 0.9% 2.5 ML Syringe FLUSH PRN (08:51)
[2020-08-21] MEDS ORDERED: Morphine 4 MG/ML Syringe IVPUSH ONE (08:58)
[2020-08-21] MEDS ORDERED: Ondansetron 4 MG/2 ML SDV IVPUSH ONE (08:58)
[2020-08-21] MEDS ORDERED: metroNIDAZOLE/Normal Saline 500 MG in Premix Bag 1 BAG IV ONE (09:04)
[2020-08-21 09:31] LABS: BLOOD UREA NITROGEN,BUN 10 mg/dL (7.0-18.0); CHLORIDE,CL 96 mmol/L (98-107); GLUCOSE RANDOM 115 mg/dL (74-106); LIPASE 46 U/L (73-393); POTASSIUM,K 4.1 mmol/L (3.5-5.1); SODIUM,NA 132 mmol/L (136-148)
[2020-08-21] MEDS ORDERED: Iopamidol 755 MG/ML 500 ML Multipack Bottle IVPUSH STA (10:12)
--- NOTE | 2020-08-21 10:47 | CT ---
INDICATION: Inability to urinate. History of C difficile colitis. COMPARISON: None provided. TECHNIQUE: 100 mL Isovue-370 contrast. FINDINGS: No finding of significance in the visualized lung bases. Moderate low attenuation of liver parenchyma. Gallbladder and biliary ducts are normal. Normal enhancing kidneys. Normal size spleen. No inflammation of the pancreas. Calcified aortocaval lymph node in below the crossing left renal vein. No pathologic mediastinal or hilar adenopathy. Prominent stool in the colon. Significantly distended urinary bladder. No filling defect. Prostate size is normal. Some dystrophic central calcification. Multilocular perianal/perirectal abscess ease circumferentially around the distal rectum and anus with multiple foci of nondependent air perhaps related to fistula formation. Is at see stroke peripheral enhancement and hazy surrounding inflammatory attenuation. Air asymmetric to the left as a extends cephalad into the pararectal space. Underlying bowel shows moderate circumferential enhancing wall thickening. No other areas of bowel inflammation. Mild degenerative disc disease in the spine. Vacuum disc protrusion L4-5. Some relative central canal narrowing L2-3 through L5-S1 at the disc levels. Likely post traumatic fatty replacement portions of proximal right rectus femoris. IMPRESSION: 1. Proctitis with prominent perirectal and perianal abscesses with potential fistula formation with multiple foci of air in the abscesses. It is possible this process could contribute to reactive outlet obstruction and dilatation of the urinary bladder. No direct extension of infection into the seminal vesicles are prostate is appreciated. Abscesses extend below the field of view to the perineum roughly 5 cm from the anal verge into left perirectal fossa. 2. Acute on chronic constipation. 3. Hepatic steatosis. Please note that all CT scans at this facility use dose modulation, iterative reconstruction, and/or weight-based dosing when appropriate to reduce radiation dose to as low as reasonably achievable. Dictated by Michael Muñoz MD @ Aug 21 2020 10:37AM Signed by Dr. Michael Muñoz @ Aug 21 2020 10:46AM
== END 2020-08-21 14:00 ==
LOC: MW.ED 08:13
DX: A41.9 Sepsis, unspecified organism (principal); R33.9 Retention of urine, unspecified; N32.0 Bladder-neck obstruction; K61.2 Anorectal abscess; I10 Essential (primary) hypertension; Z79.82 Long term (current) use of aspirin; Z20.822 Contact with and (suspected) exposure to COVID-19
CPT/HCPCS: 36415; 51702; 74177; 80053; 81001; 83605; 83690; 83735; 84100; 85025; 85610; 85730; 87040; 96365; 96375; 99285; J2270; J2405; J3490; J7120; Q9967; U0002; 99291

== ENCOUNTER 2020-09-27 16:07 | Emergency (ER) | payer MEDICARE, OTHER ==
--- NOTE | 2020-09-27 16:49 | EDM.PDOC ---
<Bipin Murray - Last Filed: 09/27/20 18:55> ED HPI GENERAL MEDICAL PROBLEM - General Stated Complaint: SEVERE PAIN IN GROIN Time Seen by Provider: 09/27/20 16:07 Source of Information: Reports: Patient History Limitations: Reports: No Limitations - History of Present Illness INITIAL COMMENTS - FREE TEXT/NARRATIVE: 70-year-old male past medical history recently diagnosed rectal cancer, perirectal abscess which was surgically managed at an outside hospital with drains removed a couple of weeks ago, history of urinary retention and bladder outlet obstruction presents for testicular pain and suprapubic pain. Pain is been going on for the last couple of days. No associated nausea or vomiting. No associated abdominal pain. No fevers. Patient notes that he is getting over a C. difficile infection and that stools have been pretty good but last night were a bit watery. Groin Pain Score (Numeric/FACES): 5 - Related Data Allergies Allergy/AdvReac Type Severity Reaction Status Date / Time No Known Allergies Allergy Verified 09/27/20 16:51 Home Meds: Home Meds Phenazopyridine [Pyridium] 100 mg PO TID 09/27/20 [History] Sulfamethoxazole/Trimethoprim [Bactrim Ds Tablet] 1 each PO BID 10 Days #20 tablet 09/27/20 [Rx] Past Medical History - Past Health History Medical/Surgical History: Denies Medical/Surgical History HEENT History: Reports: Hard of Hearing Cardiovascular History: Reports: Hypertension Respiratory History: Reports: Other (See Below) Other Respiratory History: Pt reports having pneumonia two years ago - Infectious Disease History Infectious Disease History: Reports: Chicken Pox - Past Surgical History Other Musculoskeletal Surgeries/Procedures:: right knee surgery Social & Family History - Family History Family Medical History: No Pertinent Family History Cardiac: Reports: Other (See Below) Other Cardiac Family History: Pt reports dad and uncles having "heart troubles" - Caffeine Use Caffeine Use: Reports: Coffee Caffeine Use Comment: About 8 cups a day ED ROS GENERAL - Review of Systems Review Of Systems: Comprehensive ROS is negative, except as noted in HPI. ED EXAM, GENERAL - Physical Exam Exam: See Below Exam Limited By: No Limitations General Appearance: Alert, WD/WN, No Apparent Distress Ears: Hearing Grossly Normal Throat/Mouth: Normal Voice, No Airway Compromise Head: Atraumatic, Normocephalic Neck: Normal Inspection Respiratory/Chest: No Respiratory Distress, Lungs Clear, Normal Breath Sounds, No Accessory Muscle Use Cardiovascular: Normal Peripheral Pulses, Regular Rate, Rhythm GI/Abdominal: Soft, Non-Tender Extremities: Normal Inspection Neurological: Alert, Normal Cognition, Normal Gait Psychiatric: Normal Affect, Normal Mood Skin Exam: Warm, Dry, Intact, Normal Color Course - Re-Assessments/Exams Free Text/Narrative Re-Assessment/Exam: 09/27/20 17:01 We will get a post void residual. Will get labs. 09/27/20 17:29 Patient was unable to urinate but his bladder scan only showed 329 mL of fluid. His testicular exam is normal without tenderness to palpation. His suprapubic area is not tender either. The penis is normal in appearance without tenderness or lesions. We will follow up blood labs and urinalysis. 09/27/20 17:44 Patient with leukocytosis of 17. CT abdomen pelvis ordered. 09/27/20 18:54 Urinalysis with evidence of urinary tract infection. We will follow-up CT abdomen pelvis. Will give 1 dose of ceftriaxone in the emergency department. Departure - Departure Disposition: DC/Tfer to Acute Hospital 02 Condition: Good Clinical Impression: Perianal abscess, History of rectal cancer, Sepsis - Discharge Information Prescriptions: Sulfamethoxazole/Trimethoprim [Bactrim Ds Tablet] 1 each PO BID 10 Days #20 tablet Instructions: Sepsis, Diagnosis, Adult, Anorectal Abscess <Miki Vela - Last Filed: 09/27/20 21:55> Course - Vital Signs Last Recorded V/S: Last Vital Signs Temp 98.5 F 09/27/20 21:00 Pulse 106 H 09/27/20 21:00 Resp 18 09/27/20 21:00 BP 149/78 H 09/27/20 21:00 Pulse Ox 97 09/27/20 21:00 - Orders/Labs/Meds Orders: Active Orders 24 hr Category Date Time Status Bladder Scan [RC] ASDIRECTED Care 09/27/20 17:01 Active CORONAVIRUS COVID-19 GUCCI [MOLEC] Stat Lab 09/27/20 21:19 Ordered Sodium Chloride 0.9% [Saline Flush] Med 09/27/20 16:54 Active 10 ml FLUSH ASDIRECTED PRN Sodium Chloride 0.9% [Saline Flush] Med 09/27/20 16:54 Active 2.5 ml FLUSH ASDIRECTED PRN Saline Lock Insert [OM.PC] Stat Oth 09/27/20 16:55 Ordered Medication Orders Sodium Chloride (Sodium Chloride 0.9% 10 Ml Syringe) 10 ml FLUSH ASDIRECTED PRN PRN Reason: Keep Vein Open Last Admin: 09/27/20 17:44 Dose: 10 ml Documented by: ROSEANNA Sodium Chloride (Sodium Chloride 0.9% 2.5 Ml Syringe) 2.5 ml FLUSH ASDIRECTED PRN PRN Reason: Keep Vein Open Last Admin: 09/27/20 17:44 Dose: 2.5 ml Documented by: ROSEANNA Labs: Laboratory Tests 09/27/20 09/27/20 09/27/20 Range/Units 17:15 17:15 18:40 WBC 16.09 H (4.0-11.0) K/uL RBC 3.64 L (4.50-5.90) M/uL Hgb 9.5 L (13.0-17.0) g/dL Hct 30.2 L (38.0-50.0) % MCV 83.0 (80.0-98.0) fL MCH 26.1 L (27.0-32.0) pg MCHC 31.5 (31.0-37.0) g/dL RDW Std Deviation 46.7 (28.0-62.0) fl RDW Coeff of Gregory 15 (11.0-15.0) % Plt Count 492 H (150-400) K/uL MPV 8.80 (7.40-12.00) fL Neut % (Auto) 79.9 (48.0-80.0) % Lymph % (Auto) 11.5 L (16.0-40.0) % [place] % (Auto) 7.5 (0.0-15.0) % Eos % (Auto) 0.9 (0.0-7.0) % Baso % (Auto) 0.2 (0.0-1.5) % Neut # (Auto) 12.9 H (1.4-5.7) K/uL Lymph # (Auto) 1.9 (0.6-2.4) K/uL [place] # (Auto) 1.2 H (0.0-0.8) K/uL Eos # (Auto) 0.1 (0.0-0.7) K/uL Baso # (Auto) 0.0 (0.0-0.1) K/uL Nucleated RBC % 0.0 /100WBC Nucleated RBCs # 0 K/uL Sodium 132 L (136-148) mmol/L Potassium 3.7 (3.5-5.1) mmol/L Chloride 96 L (98-107) mmol/L Carbon Dioxide 27.1 (21.0-32.0) mmol/L BUN 11 (7.0-18.0) mg/dL Creatinine 1.2 (0.8-1.3) mg/dL Est Cr Clr Drug Dosing 51.69 mL/min Estimated GFR (MDRD) 59.9 ml/min Glucose 116 H (74-106) mg/dL Calcium 8.7 (8.5-10.1) mg/dL Total Bilirubin 0.8 (0.2-1.0) mg/dL AST 15 (15-37) IU/L ALT 13 L (14-63) IU/L Alkaline Phosphatase 136 H (46-116) U/L Total Protein 7.8 (6.4-8.2) g/dL Albumin 3.4 (3.4-5.0) g/dL Globulin 4.4 H (2.6-4.0) g/dL Albumin/Globulin Ratio 0.8 L (0.9-1.6) Urine Color ORANGE Urine Appearance CLEAR Urine pH 5.0 (5.0-8.0) Ur Specific [place] 1.010 (1.001-1.035) Urine Protein TRACE H (NEGATIVE) mg/dL Urine Glucose (UA) NEGATIVE (NEGATIVE) mg/dL Urine Ketones NEGATIVE (NEGATIVE) mg/dL Urine Occult Blood NEGATIVE (NEGATIVE) Urine Nitrite POSITIVE H (NEGATIVE) Urine Bilirubin NEGATIVE (NEGATIVE) Urine Urobilinogen 4.0 H (<2.0) EU/dL Ur Leukocyte Esterase TRACE H (NEGATIVE) Urine RBC 0-1 (0-2/HPF) Urine WBC 0-1 (0-5/HPF) Ur Epithelial Cells RARE (NONE-FEW) Urine Bacteria RARE (NEGATIVE) Urinalysis Comment Meds: Medications Generic Name Dose Route Start Last Admin Trade Name Freq PRN Reason Stop Dose Admin Sodium Chloride 10 ml 09/27/20 16:54 09/27/20 17:44 Sodium Chloride 0.9% 10 Ml Syringe FLUSH 10 ml ASDIRECTED PRN Administration Keep Vein Open Sodium Chloride 2.5 ml 09/27/20 16:54 09/27/20 17:44 Sodium Chloride 0.9% 2.5 Ml Syringe FLUSH 2.5 ml ASDIRECTED PRN Administration Keep Vein Open Discontinued Medications Generic Name Dose Route Start Last Admin Trade Name Freq PRN Reason Stop Dose Admin Ceftriaxone Sodium/Dextrose 1 50 mls @ 100 mls/hr 09/27/20 18:53 09/27/20 19:31 gm/ Premix IV 09/27/20 19:22 100 mls/hr ONETIME ONE Administration Iopamidol 100 ml 09/27/20 18:28 09/27/20 18:29 Iopamidol 755 Mg/Ml 500 Ml Multipack Bottle IVPUSH 09/27/20 18:29 100 ml ONETIME ONE Administration Morphine Sulfate 4 mg 09/27/20 16:54 09/27/20 17:42 Morphine 4 Mg/Ml Syringe IVPUSH 09/27/20 16:55 4 mg ONETIME ONE Administration Oxybutynin Chloride 2.5 mg 09/27/20 17:39 09/27/20 18:08 Oxybutynin 5 Mg Tab PO 09/27/20 17:40 2.5 mg STAT STA Administration - Re-Assessments/Exams Free Text/Narrative Re-Assessment/Exam: 09/27/20 19:09 This patient was signed out to me from Dr. Gould at this time. I promptly performed a detailed physical examination, my examination was performed after ED treatments were initiated by the signout provider. Patient has been under the care of the previous provider up until this point. 09/27/20 20:09 I reassessed the patient, his CT demonstrating persistent abscesses with enhancing gas and fluid collection along the left aspect of the rectum measuring 4.3 x 1.3 cm in size, and another on the right aspect of the lower anal canal measuring 2.4 x 2 cm in size. Patient states that he has an appointment on Wednesday, the first initial appointment to see his radiation oncologist, and an appointment to see a ethnoarchaeologist on . 09/27/20 21:00 Case was discussed with Dr. Freddy Tuttle, on-call for surgery, he recommends transferring back to [facility] for colorectal consultation. 09/27/20 21:10 Case was discussed with surgeon Dr. Schaefer (surgery) at [facility], will consult on patient upon arrival. Case was discussed with Dr. Nakia Martinez, will accept patient as the hospitalist. I discussed all the findings with the patient and his , they elect to drive by private vehicle immediately upon discharge from the ER. Departure - Departure Time of Disposition: 21:55 - Discharge Information *PRESCRIPTION DRUG MONITORING PROGRAM REVIEWED*: Not Applicable *COPY OF PRESCRIPTION DRUG MONITORING REPORT IN PATIENT KOLBY: Not Applicable Sepsis Event Note (ED) - Focused Exam Vital Signs: Vital Signs Temp Pulse Resp BP Pulse Ox 09/27/20 21:00 98.5 F 106 H 18 149/78 H 97 09/27/20 18:09 98.7 F 97 16 149/80 H 99 09/27/20 16:45 98.6 F 102 H 156/79 H 98 - My Orders Last 24 Hours: My Active Orders 09/27/20 21:19 CORONAVIRUS COVID-19 GUCCI [MOLEC] Stat - Assessment/Plan Last 24 Hours: My Active Orders 09/27/20 21:19 CORONAVIRUS COVID-19 GUCCI [MOLEC] Stat
[2020-09-27] MEDS ORDERED: Sodium Chloride 0.9% 10 ML Syringe FLUSH PRN (16:54)
[2020-09-27] MEDS ORDERED: Sodium Chloride 0.9% 2.5 ML Syringe FLUSH PRN (16:54)
[2020-09-27] MEDS ORDERED: Morphine 4 MG/ML Syringe IVPUSH ONE (16:54)
[2020-09-27] MEDS ORDERED: Oxybutynin 5 MG Tab PO STA ×2 (17:36→17:39)
[2020-09-27 17:47] LABS: CARBON DIOXIDE,CO2 27.1 mmol/L (21.0-32.0); POTASSIUM,K 3.7 mmol/L (3.5-5.1)
[2020-09-27] MEDS ORDERED: Iopamidol 755 MG/ML 500 ML Multipack Bottle IVPUSH ONE (18:28)
[2020-09-27] MEDS ORDERED: cefTRIAXone 1 GM in Premix Bag 1 BAG IV ONE (18:53)
--- NOTE | 2020-09-27 19:15 | CT ---
INDICATION: Leukocytosis, bladder spasms. Recently diagnosed with rectal cancer 1 month ago. TECHNIQUE: CT of the abdomen and pelvis with 100 cc Isovue 370 IV contrast. Coronal and sagittal reconstructions. COMPARISON: CT chest, abdomen, pelvis 08/26/2020. PET-CT 09/24/2020. FINDINGS: The liver, gallbladder, spleen, pancreas, and adrenal glands are negative. Hepatic and portal veins are patent. There is mild intrahepatic bile duct dilation which is slightly more prominent than prior exam. Symmetric enhancement of the kidneys. No hydronephrosis. No obstructing urinary calculi. Removal of the previously seen Jansen catheter. There is mild diffuse bladder wall thickening which has significantly improved compared to prior exam. No definite evidence of bladder inflammation. The prostate gland is not enlarged. No bowel dilation. Colonic diverticulosis without evidence of diverticulitis. Large amount of stool throughout the colon. The appendix is not identified. There is wall thickening and mucosal hyperenhancement of the rectum which may represent the patient`s known rectal cancer. There is a persistent crescent-shaped peripherally enhancing gas and fluid collection along the left aspect of the rectum measuring approximately 4.3 x 1.3 cm (series 201 image 155). There is also a persistent multiloculated peripherally enhancing gas and fluid collection along the right aspect of the lower anal canal measuring approximately 2.4 x 2.0 cm (image 177). These are not of drainable size. Hazy fat stranding about the distal sigmoid colon and rectum is likely inflammatory. Aortoiliac vascular calcifications. Few mildly prominent superior rectal chain lymph nodes. No lymphadenopathy by size criteria. The lung bases are clear. IMPRESSION: 1. Wall thickening and mucosal hyperenhancement of the rectum may represent the patient`s known rectal cancer, with likely superimposed inflammation. 2. Persistent small abscesses along the left aspect of the rectum and right aspect of the lower anal canal. These are not of drainable size. 3. No definite evidence of bladder inflammation. Bladder wall thickening has significantly decreased compared to prior exam. 4. Large amount of stool throughout the colon. Please note that all CT scans at this facility use dose modulation, iterative reconstruction, and/or weight-based dosing when appropriate to reduce radiation dose to as low as reasonably achievable. Dictated by Priya Ortiz MD @ Sep 27 2020 6:58PM Signed by Dr. Priya Ortiz @ Sep 27 2020 7:13PM
== END 2020-09-27 22:00 ==
LOC: MW.ED 16:07
DX: A41.9 Sepsis, unspecified organism (principal); K61.0 Anal abscess; Z85.048 Personal history of other malignant neoplasm of rectum, rectosigmoid junction, and anus; Z20.822 Contact with and (suspected) exposure to COVID-19
CPT/HCPCS: 36415; 74177; 80053; 81001; 85025; 96365; 96375; 99285; A9270; J0696; J2270; Q9967; U0002; 99284

== ENCOUNTER 2022-05-16 09:06 | Emergency (ER) | payer MEDICARE, OTHER ==
[2022-05-16] MEDS ORDERED: Sodium Chloride 0.9% 10 ML Syringe FLUSH PRN (09:20)
[2022-05-16] MEDS ORDERED: Sodium Chloride 0.9% 1,000 ML IV ONE (09:20)
[2022-05-16] MEDS ORDERED: Sodium Chloride 0.9% 2.5 ML Syringe FLUSH PRN (09:20)
[2022-05-16 10:19] LABS: CARBON DIOXIDE,CO2 21.7 mmol/L (21.0-32.0); POTASSIUM,K 4.1 mmol/L (3.5-5.1)
[2022-05-16] MEDS ORDERED: Acetaminophen 325 MG Tab PO ONE (10:39)
== END 2022-05-16 11:23 | disposition home or self-care (01) ==
LOC: MW.ED 09:06
DX: R55 Syncope and collapse (principal); I10 Essential (primary) hypertension
CPT/HCPCS: 36415; 71045; 80053; 84484; 85025; 93005; 96360; 99284; A9270; J3490; J7030